=== PATIENT | male | born 1990 | race Caucasian/White ===

== ENCOUNTER 2017-09-04 04:38 | Emergency (ER) | payer OTHER ==
[2017-09-04 05:24] VITALS: BMI 31.5
[2017-09-04] MEDS ORDERED: KETOROLAC TROMETHAMINE 30 MG/1 ML VIAL IVPUSH ONE (05:51)
[2017-09-04] MEDS ORDERED: KETOROLAC TROMETHAMINE 30 MG/1 ML VIAL ONE (06:05)
[2017-09-04 06:14] LABS: BASO % 0.4 % (0-2.0); EOS % 6.6 % (0-4.5); HEMATOCRIT 38.5 % (35.4-49); HEMOGLOBIN 13.4 GM/dL (11.7-16.9); LYMPH % 16.2 % (8-40); MCH 29.2 pg (25.7-33.7); MCHC 34.8 g/dl (32.0-35.9); MEAN PLT VOLUME 8.6 fl (7.5-11.1); MONO % 6.7 % (3.8-10.2); NEUT % 70.1 % (42.8-82.8); PLATELET COUNT 185 K/MM3 (134-434); RBC 4.58 M/mm3 (4.00-5.60); RDW 13.5 % (11.9-15.9); WHITE BLOOD COUNT 9.5 K/mm3 (4.0-10.0)
[2017-09-04] MEDS ORDERED: FAMOTIDINE 20 MG/50 ML IVPB 20 MG/50 ML MG IVPB ONE ×2 (06:25)
--- NOTE | 2017-09-04 06:25 | PDOC ---
History of Present Illness - General Chief Complaint: Pain Stated Complaint: ABDOMINAL PAIN Time Seen by Provider: 09/04/17 05:41 History Source: Patient Exam Limitations: No Limitations - History of Present Illness Initial Comments: 09/04/17 05:56 Patient is a 26-year-old male with no past medical history complaining of pain in the upper abdomen since about 2:30 this morning. States the pain is a tight pants intermittent squeezing pain which is 8/10 and was associated with nausea and vomiting at about 12:30 this morning after eating at [email or web address] at 1 AM this morning. He has had several episodes of this colicky type pain since start of symptoms. States prior episode of this same type of symptoms about 2 weeks ago after drinking the night before. Currently has no nausea symptoms. Denies fever, chills, diarrhea. PMD: Dr. Liu PMHX: as above PSOCX: (+) cig 1/2pack week, etoh every weekend ALL: NKDA GENERAL/CONSTITUTIONAL: [No fever or chills. No weakness. No weight change.] HEAD, EYES, EARS, NOSE AND THROAT: [No change in vision. No ear pain or discharge. No sore throat.] CARDIOVASCULAR: [No chest pain or shortness of breath.] RESPIRATORY: [No cough, wheezing, or hemoptysis.] GASTROINTESTINAL(+)nausea, vomiting,(-) diarrhea or constipation. No rectal bleeding.] GENITOURINARY: [No dysuria, frequency, or change in urination.] MUSCULOSKELETAL: [No joint or muscle swelling or pain. No neck or back pain.] SKIN AND BREASTS: [No rash or easy bruising.] NEUROLOGIC: [No headache, vertigo, loss of consciousness, or loss of sensation.] PSYCHIATRIC: [No depression or anxiety.] ENDOCRINE: [No increased thirst. No abnormal weight change.] HEMATOLOGIC/LYMPHATIC: [No anemia, easy bleeding, or history of blood clots.] ALLERGIC/IMMUNOLOGIC: [No hives or skin allergy. No latex allergy.] GENERAL: [The patient is awake, alert, and fully oriented, in mild distress.] HEAD: [Normal with no signs of trauma.] EYES: [Pupils equal, round and reactive to light, extraocular movements intact, sclera anicteric, conjunctiva clear.] ENT: [Ears normal, nares patent, oropharynx clear without exudates. Moist mucous membranes.] NECK: [Normal range of motion, supple without lymphadenopathy, JVD, or masses.] LUNGS: [Breath sounds equal, clear to auscultation bilaterally. No wheezes, and no crackles.] HEART: [Regular rate and rhythm, normal S1 and S2 without murmur, rub.] ABDOMEN: [Soft, tenderness upper abdomen, normoactive bowel sounds. No guarding , no rebound. No masses.] EXTREMITIES: [Normal range of motion, no edema. No clubbing or cyanosis. No cords, erythema, or tenderness.] NEUROLOGICAL: [Cranial nerves II through XII grossly intact. Normal speech, normal gait.] PSYCH: [Normal mood, normal affect.] SKIN: [Warm, Dry, normal turgor, no rashes or lesions noted.] Past History - Past Medical History Allergies/Adverse Reactions: Allergies Allergy/AdvReac Type Severity Reaction Status Date / Time No Known Allergies Allergy Verified 09/04/17 05:24 Home Medications: Ambulatory Orders NK [No Known Home Medication] 09/04/17 - Suicide/Smoking/Psychosocial Hx Smoking History: Never smoked Have you smoked in the past 12 months: No Information on smoking cessation initiated: No Hx Alcohol Use: No Drug/Substance Use Hx: No *Physical Exam - Vital Signs Last Vital Signs Temp Pulse Resp BP Pulse Ox 97.9 F 57 L 19 133/85 99 09/04/17 05:21 09/04/17 05:21 09/04/17 05:21 09/04/17 05:21 09/04/17 05:21 ED Treatment Course - LABORATORY CBC & Chemistry Diagram: 09/04/17 05:53 09/04/17 05:53 - RADIOLOGY Radiology Studies Ordered: Category Date Time Status ABDOMEN US [US] Stat Ultrasound 09/04/17 05:50 Ordered Medical Decision Making - Medical Decision Making 09/04/17 05:56 Patient is a 26-year-old male with no past medical history complaining of pain in the upper abdomen since about 2:30 this morning started after eating quesadilla and again after drinking. Pain seems to be colicky nature suggestive of gallstones. Bedside ultrasound done noted gallstones. Labs Pain meds, Pepcid Official ultrasound. Surgical consult if indicated. Endorsed today and came pending disposition. *DC/Admit/Observation/Transfer Diagnosis at time of Disposition: Abdominal pain Qualifiers: Abdominal location: upper abdomen, unspecified Qualified Code(s): R10.10 - Upper abdominal pain, unspecified - Discharge Dispostion Condition at time of disposition: Fair - Referrals Referrals: Jeremias Liu MD [Primary Care Provider] - - Patient Instructions - Post Discharge Activity
[2017-09-04 06:42] LABS: ALBUMIN 3.5 g/dl (3.4-5.0); ALK PHOS 97 U/L (45-117); AMYLASE 63 U/L (25-115); ANION GAP 10 (8-16); BILIRUBIN,TOTAL 0.4 mg/dL (0.2-1.0); BLOOD UREA NITROGEN 9 mg/dL (7-18); CALCIUM 8.9 mg/dL (8.5-10.1); CHLORIDE 101 mmol/L (98-107); CO2 26 mmol/L (21-32); CREATININE 0.9 mg/dL (0.7-1.3); GLUCOSE,RANDOM 97 mg/dL (74-106); LIPASE 170 U/L (73-393); POTASSIUM 3.6 mmol/L (3.5-5.1); SGOT/AST 34 U/L (15-37); SGPT/ALT 32 U/L (12-78); SODIUM 137 mmol/L (136-145); TOT PROT 7.4 g/dl (6.4-8.2)
--- NOTE | 2017-09-04 07:42 | PDOC ---
ED Treatment Course - LABORATORY CBC & Chemistry Diagram: 09/04/17 05:53 09/04/17 05:53 - ADDITIONAL ORDERS Additional order review: Laboratory Results 09/04/17 05:53 Sodium 137 Potassium 3.6 Chloride 101 Carbon Dioxide 26 Anion Gap 10 BUN 9 Creatinine 0.9 Creat Clearance w eGFR > 60 Random Glucose 97 Calcium 8.9 Total Bilirubin 0.4 AST 34 ALT 32 Alkaline Phosphatase 97 Total Protein 7.4 Albumin 3.5 Total Amylase 63 Lipase 170 09/04/17 05:53 RBC 4.58 MCV 84.0 MCHC 34.8 RDW 13.5 MPV 8.6 Neutrophils % 70.1 Lymphocytes % 16.2 Monocytes % 6.7 Eosinophils % 6.6 H Basophils % 0.4 - Medications Given in the ED: ED Medications Discontinued Medications Generic Name Dose Route Start Last Admin Trade Name Freq PRN Reason Stop Dose Admin Famotidine/Sodium Chloride 20 mg in 50 mls @ 100 mls/hr 09/04/17 06:25 06:25 Pepcid 20 Mg Premixed Ivpb - IVPB 09/04/17 06:54 100 mls/hr ONCE ONE Administration Ketorolac Tromethamine 30 mg 09/04/17 05:51 09/04/17 06:10 Toradol Injection - IVPUSH 09/04/17 05:52 30 mg ONCE ONE Administration Progress Note - Progress Note Progress Note: I have received report from JEREMY Landry regarding this patient. Pt's initial chief complaint: RUQ pain Pt's work up completed prior to sign out: labs Pt treatment given from prior staff: pepcid, toradol Pt plan to be completed: Gallbladder ultrasound Dispo: Pending Medical Decision Making - Medical Decision Making A/P: 26 y/o afebrile male c/o RUQ pain since 2:30am. The patient was initially evaluated by JEREMY Landry. Labs normal. Awaiting gallbladder ultrasound for dispo. Gallbladder Ultrasound IMPRESSION: Multiple gallstones without sonographic evidence of acute cholecystitis. Labs unremarkable. No fever, No white count. Liver enzymes normal. Gave the patient his results. Suggested pepcid daily and f/u with Dr. Rock for possible surgery. patient instructed to return to the ER with any worsening or concerning symptoms. The patient verbalizes understanding of all instructions, has no further questions and is awaiting discharge. *DC/Admit/Observation/Transfer Diagnosis at time of Disposition: Gallstones Abdominal pain Qualifiers: Abdominal location: upper abdomen, unspecified Qualified Code(s): R10.10 - Upper abdominal pain, unspecified - Discharge Dispostion Disposition: HOME Condition at time of disposition: Improved - Referrals Referrals: Jeremias Liu MD [Primary Care Provider] - Call tomorrow Vincent Rock MD [Staff Physician] - Call tomorrow - Patient Instructions Printed Discharge Instructions: DI for Gallstones Additional Instructions: Discharge Instructions: -You have gallstones -You may want to change your diet and eat lots of fruits, vegetables and whole grains to help with gallstone symptoms -Avoid fatty food, spicy food and diary to prevent abdominal pain -You can take over the counter pepcid if your symptoms return -Please call Dr. Rock and schedule a follow up appointment for possible removal of gallstones -Return to the ER with any worsening or concerning symptoms. - Post Discharge Activity Forms/Work/School Notes: Back to Work
[2017-09-04 10:27] VITALS: BP 101/54; PULSE 55; TEMP 97.8
== END 2017-09-04 10:34 | disposition home or self-care (01) ==
LOC: JER 04:38 → SUPCPDRO 04:38 → JER 10:34
PROC: 3E033GC Introduction of Other Therapeutic Substance into Peripheral Vein, Percutaneous Approach (ICD-10-PCS; principal; 2017-09-04)
DX: F10.10 Alcohol abuse, uncomplicated (principal)
CPT/HCPCS: 36415; 76700-TC; 80053; 82150; 83690; 85025; 96365; 99282-25

== ENCOUNTER 2018-02-14 14:04 | Emergency (ER) | payer OTHER ==
[2018-02-14] MEDS ORDERED: METOCLOPRAMIDE HCL INJECTION 10 MG/2 ML VIAL IVPUSH ONE (14:11)
[2018-02-14] MEDS ORDERED: SODIUM CHLORIDE 1,000 ML IV STA (14:11)
[2018-02-14] MEDS ORDERED: KETOROLAC TROMETHAMINE 30 MG/1 ML VIAL IVPUSH ONE (14:11)
--- NOTE | 2018-02-14 14:11 | PDOC ---
Rapid Medical Evaluation Time Seen by Provider: 02/14/18 14:06 Medical Evaluation: Allergies Allergy/AdvReac Type Severity Reaction Status Date / Time No Known Allergies Allergy Verified 09/04/17 05:24 02/14/18 14:07 I have performed a brief in-person evaluation of this patient. The patient presents with a chief complaint of: retrobulbar headache x2 weeks Pertinent physical exam findings: CN II-XII grossly intact. PERROBERT, CANDIDAMI. I have ordered the following: IVF, Reglan, benadryl, toradol The patient will proceed to the ED for further evaluation. Discharge Disposition - Diagnosis Headache - Referrals Referrals: Jeremias Liu MD [Primary Care Provider] - - Patient Instructions - Post Discharge Activity
[2018-02-14 14:14] VITALS: BP 109/70; PULSE 61; TEMP 97.5; BMI 24.8
--- NOTE | 2018-02-14 15:04 | PDOC ---
History of Present Illness - General Chief Complaint: Headache Stated Complaint: HEADACHE,VOMITING Time Seen by Provider: 02/14/18 14:06 History Source: Patient Exam Limitations: No Limitations - History of Present Illness Initial Comments: 02/14/18 15:57 Patient is a 27-year-old male with no past medical history who presents to the emergency department today for headache. Patient states he has been getting headaches for the past 3 weeks. He states that usually start behind his left eye and get worse. This headache began yesterday and over the course of the last two days got worse. He was seen at [facility] on 02/09/18 for similar symptoms. He states that he has a neurology follow-up on . Admits to nausea and vomiting times one. Denies fevers, chills, neck pain, rhinorrhea, congestion, chest pain, dizziness, weakness. Past History - Travel Traveled outside of the country in the last 30 days: No Close contact w/someone who was outside of country & ill: No - Past Medical History Allergies/Adverse Reactions: Allergies Allergy/AdvReac Type Severity Reaction Status Date / Time No Known Allergies Allergy Verified 02/14/18 14:07 Home Medications: Ambulatory Orders Ondansetron [Zofran Odt -] 4 mg SL TID #10 od.tablet 02/14/18 traMADol HCL [Ultram -] 50 mg PO BID #10 tablet MDD 2 02/14/18 COPD: No - Suicide/Smoking/Psychosocial Hx Smoking History: Never smoked Have you smoked in the past 12 months: No Information on smoking cessation initiated: No Hx Alcohol Use: No Drug/Substance Use Hx: No Substance Use Type: Alcohol Review of Systems - Review of Systems Able to Perform ROS?: Yes Comments:: 02/14/18 15:03 CONSTITUTIONAL: Absent: fever, chills, diaphoresis, generalized weakness, malaise, loss of appetite HEENT: Absent: rhinorrhea, nasal congestion, throat pain, throat swelling, difficulty swallowing, mouth swelling, ear pain, eye pain, visual Changes CARDIOVASCULAR: Absent: chest pain, loss of consciousness, palpitations, irregular heart rate, peripheral edema RESPIRATORY: Absent: cough, shortness of breath, dyspnea with exertion, orthopnea, wheezing, stridor, hemoptysis GASTROINTESTINAL: Present: vomiting Absent: abdominal pain, abdominal distension, nausea, vomiting , diarrhea, constipation, melena, hematochezia GENITOURINARY: Absent: dysuria, frequency, urgency, hesitancy, hematuria, flank pain, genital pain MUSCULOSKELETAL: Absent: myalgia, arthralgia, joint swelling SKIN: Absent: rash, itching, pallor HEMATOLOGIC/IMMUNOLOGIC: Absent: easy bleeding, easy bruising, lymphadenopathy, frequent infections ENDOCRINE: Absent: unexplained weight gain, unexplained weight loss, heat intolerance, cold intolerance NEUROLOGIC: Present: headache Absent: focal weakness or paresthesias, dizziness, unsteady gait, seizure, mental status changes, bladder or bowel incontinence PSYCHIATRIC: Absent: anxiety, depression, suicidal or homicidal ideation, hallucinations. Is the patient limited Afghan proficient: No *Physical Exam - Vital Signs Last Vital Signs Temp Pulse Resp BP Pulse Ox 97.5 F L 61 18 109/70 100 02/14/18 14:07 02/14/18 14:07 02/14/18 14:07 02/14/18 14:07 02/14/18 14:07 - Physical Exam Comments: 02/14/18 15:04 GENERAL: Well developed, well nourished. Awake and alert. No acute distress. HEENT: Normocephalic, atraumatic. PERRLA, EOMI. No conjunctival pallor. Sclera are non- icteric. Moist mucous membranes. Oropharynx is clear. NECK: Supple. Full ROM. No JVD. Carotid pulses 2+ and symmetric, without bruits. No thyromegaly. No lymphadenopathy. CARDIOVASCULAR: Regular rate and rhythm. No murmurs, rubs, or gallops. Distal pulses are 2+ and symmetric. PULMONARY: No evidence of respiratory distress. Lungs clear to auscultation bilaterally. No wheezing, rales or rhonchi. ABDOMINAL: Soft. Non-tender. Non-distended. No rebound or guarding. No organomegaly. Normoactive bowel sounds. MUSCULOSKELETAL Normal range of motion at all joints. No bony deformities or tenderness. No CVA tenderness. EXTREMITIES: No cyanosis. No clubbing. No edema. No calf tenderness. SKIN: Warm and dry. Normal capillary refill. No rashes. No jaundice. NEUROLOGICAL: Alert, awake, appropriate. Cranial nerves 2-12 intact. No deficits to light touch and temperature in face, upper extremities and lower extremities. No motor deficits in the in face, upper extremities and lower extremities. Normoreflexic in the upper and lower extremities. Normal speech. Toes are down- going bilaterally. Gait is normal without ataxia. PSYCHIATRIC: Cooperative. Good eye contact. Appropriate mood and affect. Medical Decision Making - Medical Decision Making 02/14/18 16:52 PT is a 27 y/o M who presents to the ED for headache worsening gradually since yesterday. Symptoms have overall been going on for three weeks. -Pt is neurologically intact on exam with no gross deficits -Given length of symptoms, head CT/sinuses ordered to r/o mass or sinusitis -Unlikely bleed as pt has had symptoms for three weeks -CT negative for mass or bleed. Sinus CT with fracture to nasal bridge. Fx to the R orbital floor without displacement or entrapment. -R eye with EOMI on exam with out pain -Pt denies trauma or falling prior to this headache and states that he fell prior to his ER visit in [place] on 02/09/18 -Pt feels better after reglan and toradol. Will DC home at this time. -Pt has follow up with neurology on 02/20/18 -I discussed the physical exam findings, ancillary test results and final diagnoses with the patient. I answered all of the patient's questions. The patient was satisfied with the care received and felt comfortable with the discharge plan and treatment plan. The Patient agrees to follow up with the primary care physician/specialist within 24-72 hours. Return precautions were given. *DC/Admit/Observation/Transfer Diagnosis at time of Disposition: Headache Qualifiers: Headache type: unspecified Headache chronicity pattern: acute headache Intractability: not intractable Qualified Code(s): R51 - Headache - Discharge Dispostion Disposition: HOME Condition at time of disposition: Stable Decision to Admit order: No - Prescriptions Prescriptions: Ondansetron [Zofran Odt -] 4 mg SL TID #10 od.tablet traMADol HCL [Ultram -] 50 mg PO BID #10 tablet MDD 2 - Referrals Referrals: Jeremias Liu MD [Primary Care Provider] - Jn Holliday MD [Staff Physician] - - Patient Instructions Printed Discharge Instructions: DI for Migraine Additional Instructions: Your treated for her headache today. Continue taking Motrin 800 mg every 8 hours not to exceed 3000 mg a day starting tomorrow. He may take tramadol twice a day for breakthrough pain. Do not drink or drive after taking this medication as it may make you sleepy. Drink plenty of fluids Keep your appointment with Dr. Holliday for neurology on 02/20/18. Return to the emergency department for worsening headache, dizziness, fever, neck pain, weakness or any new or worsening symptoms. - Post Discharge Activity Forms/Work/School Notes: Back to Work
[2018-02-14] MEDS ORDERED: KETOROLAC TROMETHAMINE 30 MG/1 ML VIAL ONE (15:13)
[2018-02-14] MEDS ORDERED: METOCLOPRAMIDE HCL INJECTION 10 MG/2 ML VIAL ONE (15:13)
[2018-02-14] MEDS ORDERED: METOCLOPRAMIDE HCL INJECTION 10 MG/2 ML VIAL IVPB ONE (15:34)
[2018-02-14] MEDS ORDERED: traMADol HCL 50 MG TABLET PO ONE (16:40)
[2018-02-14] MEDS ORDERED: traMADol HCL 50 MG TABLET ONE (16:43)
== END 2018-02-14 17:03 | disposition home or self-care (01) ==
LOC: JERFT 14:04
PROC: 3E033GC Introduction of Other Therapeutic Substance into Peripheral Vein, Percutaneous Approach (ICD-10-PCS; principal; 2018-02-14)
PROC: 3E0333Z Introduction of Anti-inflammatory into Peripheral Vein, Percutaneous Approach (ICD-10-PCS; 2018-02-14)
PROC: 3E0337Z Introduction of Electrolytic and Water Balance Substance into Peripheral Vein, Percutaneous Approach (ICD-10-PCS; 2018-02-14)
DX: R51 Headache (principal)
CPT/HCPCS: 70450-TC; 70486-TC; 96361; 96374; 96375; 99281-25; J7030

== ENCOUNTER 2019-02-05 17:12 | Emergency (ER) | payer OTHER ==
[2019-02-05 17:29] VITALS: BP 127/75; PULSE 91; TEMP 98.7; BMI 30.7
[2019-02-05] MEDS ORDERED: ACETAMINOPHEN 500 MG TABLET (FP) PO ONE (18:03)
[2019-02-05] MEDS ORDERED: ACETAMINOPHEN 500 MG TABLET (FP) ONE (18:11)
--- NOTE | 2019-02-05 19:05 | PDOC ---
History of Present Illness - General Chief Complaint: Cold Symptoms Stated Complaint: COLD SYMPTOMS Time Seen by Provider: 02/05/19 17:31 - History of Present Illness Initial Comments: 02/05/19 19:03 28-year-old male without comorbidities presents with flulike symptoms x2 days Past History - Past Medical History Allergies/Adverse Reactions: Allergies Allergy/AdvReac Type Severity Reaction Status Date / Time No Known Allergies Allergy Verified 02/05/19 17:30 Home Medications: Ambulatory Orders Ondansetron [Zofran Odt -] 4 mg SL TID #10 od.tablet 02/14/18 traMADol HCL [Ultram -] 50 mg PO BID #10 tablet MDD 2 02/14/18 COPD: No - Psycho Social/Smoking Cessation Hx Smoking History: Never smoked Have you smoked in the past 12 months: No Hx Alcohol Use: No Drug/Substance Use Hx: No Substance Use Type: Alcohol Review of Systems - Review of Systems Constitutional: Yes: Chills, Fever, Malaise, Night Sweats HEENTM: Yes: Nose Congestion Respiratory: Yes: Cough *Physical Exam - Vital Signs Last Vital Signs Temp Pulse Resp BP Pulse Ox 98.7 F 91 H 18 127/75 100 02/05/19 17:27 02/05/19 17:27 02/05/19 17:27 02/05/19 17:27 02/05/19 17:27 - Physical Exam Comments: 02/05/19 19:04 GENERAL: The patient is awake, alert, and fully oriented, in no acute distress. HEAD: Normal with no signs of trauma. EYES: sclera anicteric, conjunctiva clear. ENT: Ears normal NECK: Normal range of motion LUNGS: Breath sounds equal, clear to auscultation bilaterally. No wheezes, and no crackles. HEART: S1 and S2 without murmur, rub or gallop. ABDOMEN: Soft, nontender, normoactive bowel sounds. No guarding, no rebound. No masses. EXTREMITIES: Normal range of motion, no edema. No clubbing or cyanosis. No cords, erythema, or tenderness. NEUROLOGICAL: Cranial nerves II through XII grossly intact. Normal speech, normal gait. PSYCH: Normal mood, normal affect. SKIN: Warm, Dry, normal turgor, no rashes or lesions noted. ED Treatment Course - Medications Given in the ED: ED Medications Discontinued Medications Generic Name Dose Route Start Last Admin Trade Name Luana PRN Reason Stop Dose Admin Acetaminophen 1,000 mg 02/05/19 18:03 02/05/19 18:14 Tylenol - PO 02/05/19 18:04 1,000 mg ONCE ONE Administration Medical Decision Making - Medical Decision Making 02/05/19 19:04 Negative influenza viral upper respiratory infection supportive care with Tylenol Motrin Discharge - Discharge Information Problems reviewed: Yes Clinical Impression/Diagnosis: Viral URI with cough Condition: Stable Disposition: HOME - Admission No - Follow up/Referral Referrals: Jeremias Liu MD [Primary Care Provider] - - Patient Discharge Instructions Patient Printed Discharge Instructions: DI for Viral Upper Respiratory Infection -- Adult Additional Instructions: Tylenol Motrin for pain and fever. Return to the emergency room for worsening symptoms. Follow-up with your primary care physician in 1 to 2 days for further evaluation and treatment options. - Post Discharge Activity
== END 2019-02-05 19:09 | disposition home or self-care (01) ==
LOC: JERFT 17:12
DX: J06.9 Acute upper respiratory infection, unspecified (principal); B97.89 Other viral agents as the cause of diseases classified elsewhere
CPT/HCPCS: 87804; 99282-25

== ENCOUNTER 2019-02-09 04:38 | Emergency (ER) | payer OTHER ==
[2019-02-09 05:01] VITALS: BMI 29.9
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
[2019-02-09 06:01] LABS: BASO % 0.4 % (0-2.0); EOS % 0.4 % (0-4.5); HEMATOCRIT 42.7 % (35.4-49); HEMOGLOBIN 14.7 GM/dL (11.7-16.9); LYMPH % 13.9 % (8-40); MCH 29.1 pg (25.7-33.7); MCHC 34.3 g/dl (32.0-35.9); MEAN CELL VOLUME 84.8 fl (80-96); MEAN PLT VOLUME 8.4 fl (7.5-11.1); MONO % 6.5 % (3.8-10.2); NEUT % 78.8 % (42.8-82.8); PLATELET COUNT 244 K/MM3 (134-434); RBC 5.04 M/mm3 (4.00-5.60); RDW 13.6 % (11.9-15.9); WHITE BLOOD COUNT 9.6 K/mm3 (4.0-10.0)
[2019-02-09 06:14] LABS: INR 1.04 (0.83-1.09); PROTHROMBIN TIME (PATIENT) 12.3 SEC (9.7-13.0)
[2019-02-09 06:16] LABS: ACTIVATED PTT 31.2 SECONDS (25.2-36.5)
[2019-02-09] MEDS ORDERED: SODIUM CHLORIDE 0.9% 500 ML INFUS.BAG IV ONE (06:24)
[2019-02-09] MEDS ORDERED: DIPHTH,PERTUSS(ACELL),TET 0.5 ML DISP.SYRIN IM ONE ×2 (06:30→06:31)
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
[2019-02-09 07:21] LABS: BILIRUBIN,TOTAL 0.3 mg/dL (0.2-1); BLOOD UREA NITROGEN 5.1 mg/dL (7-18); CREATININE 0.9 mg/dL (0.55-1.3); POTASSIUM 3.6 mmol/L (3.5-5.1); TOT PROT 8.3 g/dl (6.4-8.2)
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
[2019-02-09 09:11] VITALS: BP 115/70; PULSE 101; TEMP 98
[2019-02-09 09:15] LABS: METHADONE, UR NEGATIVE ng/ml (CUTOFF=300); OPIATES, URI NEGATIVE ng/ml (CUTOFF=300); PHENCYCLIDINE,URINE NEGATIVE ng/ml (CUTOFF=25); URINE AMPHETAMINES NEGATIVE ng/ml (CUTOFF=500); URINE BARBITURATES NEGATIVE ng/ml (CUTOFF=200); URINE BENZODIAZEPINES NEGATIVE ng/ml (CUTOFF=200)
[2019-02-09 09:17] LABS: COCAINE, UR POSITIVE ng/ml (CUTOFF=300)
== END 2019-02-09 10:15 | disposition short-term general hospital (02) ==
LOC: JER 04:38
PROC: 0HQ1XZZ Repair Face Skin, External Approach (ICD-10-PCS; principal; 2019-02-09)
PROC: 3E0234Z Introduction of Serum, Toxoid and Vaccine into Muscle, Percutaneous Approach (ICD-10-PCS; 2019-02-09)
PROC: 3E033NZ Introduction of Analgesics, Hypnotics, Sedatives into Peripheral Vein, Percutaneous Approach (ICD-10-PCS; 2019-02-09)
PROC: 4A07X0Z Measurement of Visual Acuity, External Approach (ICD-10-PCS; 2019-02-09)
DX: S06.9X9A Unspecified intracranial injury with loss of consciousness of unspecified duration, initial encounter (principal); S02.2XXA Fracture of nasal bones, initial encounter for closed fracture; S00.03XA Contusion of scalp, initial encounter; S05.12XA Contusion of eyeball and orbital tissues, left eye, initial encounter; S01.111A Laceration without foreign body of right eyelid and periocular area, initial encounter; Y04.2XXA Assault by strike against or bumped into by another person, initial encounter; Y92.89 Other specified places as the place of occurrence of the external cause; Y93.89 Activity, other specified; Y99.8 Other external cause status; F10.929 Alcohol use, unspecified with intoxication, unspecified; F14.929 Cocaine use, unspecified with intoxication, unspecified; Y90.7 Blood alcohol level of 200-239 mg/100 ml; F17.210 Nicotine dependence, cigarettes, uncomplicated
CPT/HCPCS: 12011-25; 36415; 70450-TC; 70486-TC; 71045-TC-FY; 72125-TC; 73130-TC-LT-FY; 80053; 80307; 85025; 85610; 85730; 86850; 86900; 86901; 90471; 90715; 96374; 99173; 99285-25

== ENCOUNTER 2019-03-24 20:25 | Emergency (ER) | payer OTHER ==
[2019-03-24 20:43] VITALS: BMI 30.7
--- NOTE | 2019-03-24 21:56 | PDOC ---
History of Present Illness - General Chief Complaint: Chest Pain Stated Complaint: CHEST PAIN Time Seen by Provider: 03/24/19 21:52 Past History - Past Medical History Allergies/Adverse Reactions: Allergies Allergy/AdvReac Type Severity Reaction Status Date / Time No Known Allergies Allergy Verified 03/24/19 20:43 Home Medications: Ambulatory Orders Cyclobenzaprine HCl [Flexeril 10 mg] 10 mg PO BID PRN #10 tablet 03/24/19 Ibuprofen [Motrin -] 600 mg PO TID #21 tablet 03/24/19 COPD: No - Psycho Social/Smoking Cessation Hx Smoking History: Current some day smoker Have you smoked in the past 12 months: Yes Number of Cigarettes Smoked Daily: 3 Information on smoking cessation initiated: No Hx Alcohol Use: No Drug/Substance Use Hx: No Substance Use Type: Alcohol *Physical Exam - Vital Signs Last Vital Signs Temp Pulse Resp BP Pulse Ox 98.0 F 70 17 123/77 100 03/24/19 20:41 03/24/19 20:41 03/24/19 20:41 03/24/19 20:41 03/24/19 20:41 Medical Decision Making - Medical Decision Making 03/24/19 22:41 HPI: 28yo M hx migraines presents from home c/o chest pain, sharp, worsening, L anterior chest nonradiating, pleuritic, gradual onset yesterday PM s/p heavy use of cocaine (snorting) and cigarette (smoking) the prior night. Of note, pt works in construction with much heavy lifting, last worked Monday. No pain meds tried. Denies hx similar sx, hx CAD, FHx CAD, other drugs, alcohol, LOC, head injury, trauma, falls, syncope, seizure, recent travel, sick contacts, hx DVT/PE , testosterone or hormone use, surgery, hemoptysis, fever, chills, fatigue, headache, dizziness, numbness/tingling, weakness, vision changes, shortness of breath, cough, palpitations, leg swelling, abdominal pain, blood in stool, diarrhea, constipation, nausea, vomiting, dysuria, hematuria, confusion. PCP - [facility] ROS: Constitutional: Negative for chills, fever, fatigue, diaphoresis. HENT: Negative for sore throat, rhinorrhea, congestion. Eyes: Negative for visual disturbance. Respiratory: Negative for shortness of breath, cough, and wheezing. Cardiovascular: Positive for chest pain. Negative for palpitations, and leg swelling. Gastrointestinal: Negative for abdominal pain, blood in stool, constipation, diarrhea, nausea, and vomiting. Genitourinary: Negative for dysuria, flank pain, and hematuria. Musculoskeletal: Negative for myalgias, back pain, and neck pain. Skin: Negative for rash. Neurological: Negative for light-headedness, dizziness, vertigo, syncope, weakness, numbness and headaches. Psychiatric/Behavioral: Negative for behavioral problems and confusion. PE: Gen: Alert, NAD, comfortable-appearing. HEENT: PERRL, EOMI, MMM, NCAT. No conjunctival pallor. Sclera are non-icteric. Oropharynx is clear. CV: Regular rate and rhythm. No murmurs, rubs, or gallops. PULM: No resp distress. CTAB, no wheezes, rales, or rhonchi. ABD: soft, NT/ND, no rebound tenderness or guarding, no CVA tenderness. BACK: No TTP of c/t/l-spine. No step-offs or deformities. MSK: No bony deformities. 2+ pulses in all extremities. NEURO: AAOx3. PERRL. No gross CN deficits. Strength and sensation grossly intact throughout. EXTREMITIES: No cyanosis. No clubbing. No edema. No calf tenderness. PSYCH: Normal mood and thought pattern. SKIN: Warm and dry. Normal capillary refill. No rashes. No jaundice. 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 Hemodynamically stable, afebrile, benign exam. Ddx: Most consistent with MSK pain 2/2 construction work. Very low concern for pulmonary or cardiac pathology due to lack of hx, SOB, F/C, or associated sx; HEART score 0; r/o with CXR, EKG, trop. Treat pain with tylenol and reassess. -CXR -EKG -trop -tylenol -Dispo: pending w/u, likely d/c home 03/24/19 23:14 CXR reviewed: no acute pathology EKG reviewed: NSR, 65bpm, normal axis, normal intervals, no e/o acute ischemia Trop neg Pain resolved s/p tylenol. Will d/c home w/PCP f/u. Return precautions given. Discharge - Discharge Information Problems reviewed: Yes Clinical Impression/Diagnosis: Atypical chest pain Condition: Improved Disposition: HOME - Admission No - Additional Discharge Information Prescriptions: Cyclobenzaprine HCl [Flexeril 10 mg] 10 mg PO BID PRN #10 tablet PRN Reason: Pain Ibuprofen [Motrin -] 600 mg PO TID #21 tablet - Follow up/Referral - Patient Discharge Instructions Patient Printed Discharge Instructions: DI for Atypical Chest Pain, DI for Cocaine Use Disorder Additional Instructions: You have been seen in the Emergency Department for your chest pain. Your pain is most likely due to a strain or sprain of a ligament or muscle. Your EKG, labs , and X-ray show no signs of rib fracture or problem with your heart or lungs at this time. If you experience pain, you can take Tylenol or Ibuprofen (Motrin ) as directed on the medication bottle, but do not exceed 3g of Ibuprofen or 4g of Tylenol a day. We have sent a prescription for Motrin and a muscle relaxant to your pharmacy - take as directed as needed for pain. Cocaine can also cause this type of pain. Cocaine can also cause many other problems and can kill you - you should stop using it. Follow up with your primary care doctor this week. Return to the ED immediately if you experience difficulty breathing, worsening pain not controlled by over the counter medications, numbness or tingling, vomiting, or any other new or worsening symptom. - Post Discharge Activity
--- NOTE | 2019-03-24 22:11 | PDOC ---
Attending Attestation - Resident Resident Name: JanMelia - ED Attending Attestation I have performed the following: I have examined & evaluated the patient, The case was reviewed & discussed with the resident, I agree w/resident's findings & plan - HPI HPI: 03/24/19 22:22 Pt used drugs and now with pleuritic CP since yesterday and he wants to be checked out. Vitals normal EKG normal Pt is afebrile and speaking in full sentences. 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 Pt last went to work on Monday. He has taken nothing for his chest wall pain Pt is eating normally and he has norrmal vitals, normal EKG, normal CXR and normal exam Stable for d/c
[2019-03-24] MEDS ORDERED: ACETAMINOPHEN 500 MG TABLET (FP) PO ONE (22:12)
[2019-03-24] MEDS ORDERED: ACETAMINOPHEN 325 MG TABLET (FP) ONE (22:29)
[2019-03-24 23:31] VITALS: TEMP 97.8
[2019-03-24 23:49] VITALS: BP 119/73; PULSE 62
--- NOTE | 2019-03-26 12:08 | EKG ---
Test Reason : Blood Pressure : / mmHG Vent. Rate : 065 BPM Atrial Rate : 065 BPM P-R Int : 160 ms QRS Dur : 108 ms QT Int : 400 ms P-R-T Axes : 047 072 053 degrees QTc Int : 416 ms NORMAL SINUS RHYTHM NORMAL ECG NO PREVIOUS ECGS AVAILABLE Confirmed by MD Floyd, Greg ([id number] on 03/26/2019 12:08:12 PM Referred By: Confirmed By:Greg Barrientos MD
== END 2019-03-24 23:49 | disposition home or self-care (01) ==
LOC: JER 20:25 → JERFT 20:25 → JER 23:49
DX: R07.89 Other chest pain (principal); F14.10 Cocaine abuse, uncomplicated; Z72.0 Tobacco use
CPT/HCPCS: 36415; 71046-TC-FY; 84484; 93005; 93010; 99284-25

== ENCOUNTER → 2020-05-25 | Emergency (ER) | payer OTHER ==
[~2020-05-25] MED LIST: DIPHTH,PERTUSS(ACELL),TET 0.5 ML DISP.SYRIN IM ONE
[2020-05-25 23:13] VITALS: BP 127/66; PULSE 70; TEMP 98.1; BMI 33.0
== END | disposition home or self-care (01) ==
LOC: JER 23:06
PROC: 3E0234Z Introduction of Serum, Toxoid and Vaccine into Muscle, Percutaneous Approach (ICD-10-PCS; principal; 2020-05-25)
DX: S61.111A Laceration without foreign body of right thumb with damage to nail, initial encounter (principal)
CPT/HCPCS: 73140-TC-RT-FY; 90715; 99284-25

== ENCOUNTER 2021-10-21 20:33 | Emergency (ER) | payer OTHER ==
[2021-10-21 21:02] VITALS: BP 126/76; PULSE 82; TEMP 98.6; BMI 33.0
== END 2021-10-21 22:40 | disposition home or self-care (01) ==
LOC: JERFT 20:33
DX: S80.12XA Contusion of left lower leg, initial encounter (principal)
CPT/HCPCS: 73590-TC-LT-FY; 73610-TC-LT-FY; 73630-TC-LT; 99284-25